=== PATIENT | male | born 1935 | race Caucasian/White ===

== ENCOUNTER 2024-07-04 16:46 | Emergency (ER) | payer MEDICARE, BC ==
[~2024-07-04] VITALS: Ht 167.6 cm; Wt 81.6 kg
[2024-07-04] MEDS ORDERED: AMOX-430 PO (18:36)
[2024-07-04 19:18] VITALS: BP 154/72; TEMP 98.3; O2SAT 96
== END 2024-07-04 19:19 | disposition home or self-care (01) ==
LOC: ER 16:50
DX: S02.2XXA Fracture of nasal bones, initial encounter for closed fracture (principal); S00.91XA Abrasion of unspecified part of head, initial encounter; W01.0XXA Fall on same level from slipping, tripping and stumbling without subsequent striking against object, initial encounter; Y93.89 Activity, other specified; Y92.89 Other specified places as the place of occurrence of the external cause; Y99.8 Other external cause status
CPT/HCPCS: 70450-TC; 70486-TC; 72125-TC